=== PATIENT | male | born 1945 | race Hispanic/Latino ===

== ENCOUNTER 2020-02-05 19:20 | Emergency (ER) | payer OTHER ==
[~2020-02-05 19:20] MED LIST: ATOR20TA65 PO; METO-391 PO; [UNRECOGNIZED DRUG - OTHER] PO
[2020-02-05 19:55] LABS: APPEARANCE,URINE TURBID (CLEAR); BILIRUBIN,URINE NEGATIVE (NEGATIVE); COLOR,URINE RED (YELLOW); GLUCOSE, URINE (UA) 100 mg/dL (NEGATIVE); KETONES,URINE 15 mg/dL (NEGATIVE); LEUKOCYTE ESTERASE ,URINE LARGE (NEGATIVE); NITRATE,URINE POSITIVE (NEGATIVE); OCCULT BLOOD,URINE LARGE (NEGATIVE); PROTEIN,URINE >=300 mg/dL (NEGATIVE); UROBILINOGEN,URINE >=8.0 mg/dL (0.2-1.0)
[2020-02-05 20:06] LABS: BACTERIA,URINE Few /HPF (None Seen); MUCUS,URINE Few LPF (None Seen); RBC,URINE >100 /HPF (0-1); SQUAMOUS EPITHELIAL CELL,UR 0-2 /HPF (0-2)
[2020-02-05 20:09] LABS: BASOPHILS % (AUTO) 0.5 % (0.0-5.0); HEMATOCRIT 36.8 % (42-54); LYMPHOCYTES % (AUTO) 27.4 % (21.0-51.0); MEAN CORPUSCULAR HEMOGLOBIN 25.5 pg (27.0-33.0); MEAN CORPUSCULAR HGB CONC 32.3 g/dL (32.0-36.0); MEAN CORPUSCULAR VOLUME 78.8 fL (79-99); MONOCYTES % (AUTO) 10.7 % (3.0-13.0); NEUTROPHILS % (AUTO) 59.3 % (40.0-77.0); PLATELET COUNT (AUTO) 222 K/uL (130-400); RED BLOOD CELL COUNT(AUTO) 4.67 MIL/uL (4.50-6.20); WHITE BLOOD COUNT (AUTO) 7.6 K/uL (4.8-10.8)
[2020-02-05] MEDS ORDERED: CEFTRIAXONE SODIUM 1 GM ONE (20:19)
[2020-02-05 20:21] LABS: CREATININE 1.8 mg/dL (0.5-1.5); POTASSIUM 3.9 mmol/L (3.5-5.1)
[2020-02-05 20:26] LABS: ALBUMIN 3.7 g/dL (3.5-5.0); BILIRUBIN,TOTAL 0.4 mg/dL (0.2-1.0); CRP QUANTITATIVE 3.9 mg/L (0.00-9.0); TOTAL PROTEIN, SERUM 8.3 g/dL (6.0-8.3)
== END 2020-02-05 21:27 | disposition home or self-care (01) ==
LOC: EDH 19:20
DX: N40.1 Benign prostatic hyperplasia with lower urinary tract symptoms (principal); R31.0 Gross hematuria; N15.9 Renal tubulo-interstitial disease, unspecified; I10 Essential (primary) hypertension; Z87.891 Personal history of nicotine dependence
CPT/HCPCS: 36415; 51702; 74176; 80053; 81001; 83605; 83690; 84484; 85025; 86140; 87040 ×2; 87088; 96374; 99284; J0696

== ENCOUNTER 2021-04-02 07:00 | Day surgery (SDC) | payer OTHER ==
[~2021-04-02 07:00] MED LIST changes: +0.9%NACL 1000ML 1,000 ML IV ONE
[2021-04-02 07:40] VITALS: BP 129/62
[2021-04-02] MEDS ORDERED: KETAMINE 50MG/ML SYRINGE 50 MG/ML DISP.SYRIN IV ONE (09:11)
[2021-04-02] MEDS ORDERED: GLYCOPYRROLATE 0.2 MG/ML 5 ML VIAL ONE (09:12)
[2021-04-02] MEDS ORDERED: PROPOFOL 10 MG/ML 20ML VIAL IV ONE ×2 (09:12→09:21)
[2021-04-02 09:19] VITALS: BP 95/52
[2021-04-02 09:20] VITALS: BP 99/55
[2021-04-02 09:30] VITALS: BP 100/58
[2021-04-02 09:40] VITALS: BP 106/62
== END 2021-04-02 10:03 | disposition home or self-care (01) ==
LOC: DAH 07:00
PROVIDERS: ATTEND Internal Medicine Gastroenterology
DX: R93.2 Abnormal findings on diagnostic imaging of liver and biliary tract (principal); Z20.822 Contact with and (suspected) exposure to COVID-19; K83.8 Other specified diseases of biliary tract; K21.9 Gastro-esophageal reflux disease without esophagitis; I10 Essential (primary) hypertension; E78.5 Hyperlipidemia, unspecified; M19.90 Unspecified osteoarthritis, unspecified site; Z87.891 Personal history of nicotine dependence; Z86.010 Personal history of colon polyps; Z95.810 Presence of automatic (implantable) cardiac defibrillator; Z88.3 Allergy status to other anti-infective agents
CPT/HCPCS: 43237; 87635; A4215 ×2; A4221; A4222; A4223; A4606; A4620; A4663; C9803; J2704 ×2; J3490 ×2; J7030

== ENCOUNTER 2021-06-05 20:17 | Emergency (ER) | payer OTHER ==
[~2021-06-05] VITALS: Ht 167.6 cm; Wt 69.9 kg
[~2021-06-05 20:17] MED LIST changes: -0.9%NACL 1000ML 1,000 ML IV ONE; +ATOR10 PO; -ATOR20TA65 PO; +HYDR-4068 PO; +TAMS-1 PO; -[UNRECOGNIZED DRUG - OTHER] PO
[2021-06-05 20:20] VITALS: BP 126/77
[2021-06-05 20:53] LABS: HEMATOCRIT 35.7 % (42-54); MEAN CORPUSCULAR HEMOGLOBIN 28.3 pg (27.0-33.0); MEAN CORPUSCULAR HGB CONC 33.3 g/dL (32.0-36.0); PLATELET COUNT (AUTO) 204 K/uL (130-400); RED CELL DISTRIBUTION WIDTH 16.4 % (11.0-15.5); WHITE BLOOD COUNT (AUTO) 4.6 K/uL (4.8-10.8)
[2021-06-05] MEDS ORDERED: HYDROCORTISONE 25 MG SUPPOSITORY PR ONE (21:00)
[2021-06-05] MEDS ORDERED: BISACODYL 10 MG SUPP.RECT RC ONE (21:00)
[2021-06-05] MEDS ORDERED: DOCUSATE SODIUM 100 MG CAP PO ONE (21:00)
[2021-06-05 21:03] LABS: CREATININE 2.2 mg/dL (0.5-1.5); POTASSIUM 5.5 mmol/L (3.5-5.1)
[2021-06-05 21:05] LABS: INR 1.09 (0.85-1.15); PROTHROMBIN TIME 11.8 SEC (9.6-11.6)
[2021-06-05 21:07] LABS: PARTIAL THROMBOPLASTIN TIME 26.2 SEC (26.3-35.5)
[2021-06-05 21:08] LABS: ALBUMIN 2.2 g/dL (3.5-5.0); BILIRUBIN,TOTAL 0.5 mg/dL (0.2-1.0); TOTAL PROTEIN, SERUM 7.3 g/dL (6.0-8.3)
[2021-06-05 21:31] LABS: BAND NEUTROPHILS % (MANUAL) 19 % (0-2); BASOPHILS % (MANUAL) 1 % (0-2); EOSINOPHILS % (MANUAL) 2 % (1-6); LYMPHOCYTES % (MANUAL) 40 % (22-44); MAN.DIFF COMMENT-IMPRESSION MANUAL DIFFERENTIAL; MONOCYTES % (MANUAL) 4 % (2-9); SEGMENTED NEUTROPHILS % 34 % (40-70)
[2021-06-05 21:34] LABS: PLATELET MORPHOLOGY COMMENT PLT CLUMPS PRESENT
[2021-06-05] MEDS ORDERED: HYDR25SU38 RC (22:37)
[2021-06-05] MEDS ORDERED: DOCU-116 PO (22:37)
[2021-06-05] MEDS ORDERED: 0.9%NACL 1000ML 1,000 ML IV ONE (23:00)
== END 2021-06-05 23:00 ==
LOC: EDH 20:17
DX: K64.4 Residual hemorrhoidal skin tags (principal); K59.00 Constipation, unspecified; E87.5 Hyperkalemia; E86.9 Volume depletion, unspecified; J44.9 Chronic obstructive pulmonary disease, unspecified; Z79.899 Other long term (current) drug therapy; Z87.19 Personal history of other diseases of the digestive system; Z88.8 Allergy status to other drugs, medicaments and biological substances
CPT/HCPCS: 36415; 80053; 85025; 85610; 85730; 86850; 86900; 86901; 96360; 99284; J7030